=== PATIENT | male | born 1960 | race Caucasian/White ===

== ENCOUNTER 2023-05-22 12:14 | Outpatient (RCR) | payer OTHER, SELFPAY ==
--- NOTE | 2023-05-31 09:56 | ONC.NURNOTE ---
Dx: Pancreatic cancer
== END 2023-11-18 23:59 | disposition home or self-care (01) ==
LOC: CCIC 12:14
PROVIDERS: Visit Provider Clinical Nurse Specialist
DX: C25.0 Malignant neoplasm of head of pancreas (principal)
CPT/HCPCS: 99211